=== PATIENT | female | born 1975 | race Caucasian/White ===

== ENCOUNTER 2016-07-18 19:48 | Emergency (ER) | payer MEDICAID ==
[~2016-07-18] VITALS: Ht 167.6 cm; Wt 68.0 kg
[~2016-07-18 19:48] MED LIST: ALBUPOW26; KLONOPIN; LEVE100S4; NOR5T; TOPAMAX
[2016-07-18 20:15] VITALS: BP 134/74
== END 2016-07-19 02:28 | disposition left against medical advice (07) ==
LOC: ER 20:00
DX: M25.511 Pain in right shoulder (principal); Z53.21 Procedure and treatment not carried out due to patient leaving prior to being seen by health care provider